=== PATIENT | male | born 1935 | race Caucasian/White ===

== ENCOUNTER 2018-09-04 05:28 | Inpatient (IN) | payer MEDICARE ==
[2018-09-03 12:01] VITALS: BMI 26.4
--- NOTE | 2018-09-03 16:21 | HP ---
HISTORY OF PRESENT ILLNESS: Mr. Otto returns with a new MRI and x-ray imaging. He continues to suffer with severe neurologic claudication, cannot stand for more than a few minutes. Sitting or leaning forward makes his legs feel better. He is interested in surgery. Therapy and injections have not made a prudent difference. REVIEW OF SYSTEMS: A 10-point review of systems has been completed and is negative other than stated in the above HPI. PAST MEDICAL HISTORY: Back and hip pain, CHF, skin cancer, hernia, cataracts. PAST SURGICAL HISTORY: The patient denies past surgical history. FAMILY HISTORY: Father is , mother is , diagnosed with diabetes, hypertension and heart disease. Siblings are alive, diagnosed with diabetes. SOCIAL HISTORY: The patient is a former smoker, quit in 1958. with 3 children. MEDICATIONS: 1. Metformin. 2. Carvedilol. 3. Eliquis. 4. Aspirin 81 mg. 5. Alpha lipoic acid. ALLERGIES: NO KNOWN DRUG ALLERGIES. PHYSICAL EXAMINATION: CONSTITUTION: The patient is alert and oriented, afebrile, normotensive, nontoxic. HEENT. Head is normocephalic and atraumatic. Pupils are equal, round, reactive to light. Extraocular movements are intact. Hearing is intact. Moist mucous membranes. CARDIOVASCULAR: Regular rate and rhythm. RESPIRATIONS: Normal work of breathing on room air. NEUROLOGIC: Gait and station, leans forward when walking, walks slow. Motor exam, there is normal strength in iliopsoas, quadriceps, hamstrings, anterior tib, EHL, gastroc, and toe flexors. Sensory exam, stocking-distribution sensory loss. IMAGING: MRI shows stenosis at L2-L3, L3-L4 and L4-L5. Flexion-extension x-rays, mild motion at L3-L4, perhaps 1 mm. ASSESSMENT AND PLAN: Spinal stenosis with lumbar neurogenic claudication. Dr. Davis has offered surgery. INFORMED CONSENT: We have discussed the indications, risks, benefits, alternatives, and expected results from surgery. The risks discussed include, but are not limited to, bleeding, infection, CSF leak, nerve damage, weakness, incontinence, cauda equina injury, arachnoiditis, paralysis, ventilator dependence, wheelchair dependence, loss of vision, hardware misplacement, cardiopulmonary complications of anesthesia, or . Long-term complications discussed included, but were not limited to degradation of the surrounding disks, the need for further surgery. The patient states he understands the risks and is willing to proceed. Job ID: [id number]
[2018-09-04] MEDS ORDERED: Sodium Chloride 0.9% 20 ML ONE (06:17)
[2018-09-04] MEDS ORDERED: Bupivacaine HCl 0.5%/Epinephrine 1:200,000/PF 30 ml Vial ONE (06:17)
[2018-09-04] MEDS ORDERED: Thrombin 5000 UNITS/5 ML VIAL ONE (06:17)
[2018-09-04] MEDS ORDERED: Fentanyl 100 MCG/2 ML VIAL ONE ×2 (06:27→11:13)
[2018-09-04 06:31] LABS: #Basophils 0.1 thou/uL (0.0-0.2); #Eosinphils 0.1 thou/uL (0.0-0.7); #Lymphocytes 1.4 thou/uL (1.20-3.40); #Monocytes 0.5 thou/uL (0.11-0.59); #Neutrophils 3.8 thou/uL (1.40-6.50); %Basophils 1.1 % (0.0-1.0); %Eosinophils 0.9 % (0.0-10.0); %Lymphocytes 24.6 % (21.0-51.0); %Monocytes 8.6 % (0.0-10.0); %Neutrophils 64.9 % (42.0-75.0); Hemoglobin 12.8 g/dL (14.0-18.0); Mean Corpuscular HGB CONC 31.5 g/dL (32.0-36.0); Mean Corpuscular Hemoglobin 30.8 pg (27.0-31.0); Mean Corpuscular Volume 97.7 fL (78.0-98.0); Platelet Count 151 thou/uL (130-400); RBC Distribution Width 14.2 % (11.5-14.5); Red Blood Cell (RBC) Count 4.17 mill/uL (4.70-6.10); White Blood Cell (WBC) Count 5.8 thou/uL (4.8-10.8)
[2018-09-04 06:37] LABS: INR-International Normal Ratio 1.2; PTT 33.1 SEC (22.9-36.1); Prothrombin Time 15.2 SEC (12.0-14.7)
[2018-09-04] MEDS ORDERED: CEFAZOLIN 2 GM/50 ML BAG ONE (06:42)
[2018-09-04 06:49] LABS: Anion Gap 13 mmol/L (10-20); BUN (Urea Nitrogen) 32 mg/dL (8.4-25.7); Calc. Creatinine Clearance 56 mL/min (70-130); Calcium 9.1 mg/dL (7.8-10.44); Carbon Dioxide 25 mmol/L (23-31); Chloride 104 mmol/L (98-107); Estimated GFR-MDRD 59; Glucose 146 mg/dL (83-110); Potassium 4.5 mmol/L (3.5-5.1); Sodium 137 mmol/L (136-145)
[2018-09-04] MEDS ORDERED: PHENYLEPHRINE-NS 100 MCG/ML 10 ML SYRINGE ONE (08:33)
[2018-09-04] MEDS ORDERED: Acetaminophen 650 MG Suppository PR PRN (10:20)
[2018-09-04] MEDS ORDERED: Morphine 4 MG/ML VIAL SLOW IVP PRN (10:20)
[2018-09-04] MEDS ORDERED: diphenhydrAMINE 50 MG/ML VIAL IVP PRN (10:20)
[2018-09-04] MEDS ORDERED: Bisacodyl 10 MG SUPP PR PRN (10:20)
[2018-09-04] MEDS ORDERED: Promethazine 25 MG TAB PO PRN (10:20)
[2018-09-04] MEDS ORDERED: tiZANidine HCl 4 MG TAB PO PRN (10:20)
[2018-09-04] MEDS ORDERED: Promethazine HCl 25 MG/ML VIAL IM PRN (10:20)
[2018-09-04] MEDS ORDERED: Ondansetron PF 4 MG/2 ML Vial IVP PRN (10:20)
[2018-09-04] MEDS ORDERED: Acetaminophen/Codeine 30-300mg Tablet PO PRN ×2 (10:20)
[2018-09-04] MEDS ORDERED: diphenhydrAMINE 25 MG CAP PO PRN (10:20)
[2018-09-04] MEDS ORDERED: Morphine 2 MG/ML SYRINGE SLOW IVP PRN (10:20)
[2018-09-04] MEDS ORDERED: Mag-Al 1200 mg/1200 mg/30 ML UDCUP PO PRN (10:20)
[2018-09-04] MEDS ORDERED: Promethazine HCl 12.5 MG SUPP PR PRN (10:20)
[2018-09-04] MEDS ORDERED: Tamsulosin HCl 0.4 MG CAP PO PRN (10:20)
[2018-09-04] MEDS ORDERED: Milk Of Magnesia 30 ML UDCUP PO PRN (10:20)
[2018-09-04] MEDS ORDERED: CEFAZOLIN/Water 2 GM/20 ML SYRINGE SLOW IVP SCH (10:30)
[2018-09-04] MEDS ORDERED: Ondansetron HCl/PF 4 MG/2 ML Vial IVP PRN (10:31)
[2018-09-04] MEDS ORDERED: HYDROmorphone 2 MG/ML VIAL SLOW IVP PRN (10:31)
--- NOTE | 2018-09-04 10:46 | OP ---
DATE OF PROCEDURE: 09/04/2018 GOLF [employer]RSE SUPERINTENDENT: Shelly Velazquez PA-C. PREOPERATIVE INDICATION: Treat pain and prevent neurological deterioration. PREOPERATIVE DIAGNOSIS: Multilevel lumbar stenosis with severe neurogenic claudication. POSTOPERATIVE DIAGNOSIS: Multilevel lumbar stenosis with severe neurogenic claudication. PROCEDURE PERFORMED: Decompressive laminectomy, medial facetectomy, and foraminotomy at L2-L3, L3-L4, L4-L5. PREOPERATIVE MEDICATION: Ancef 2 g IV. DRAIN NUMBER: 1. DRAIN TYPE: 10-L[place] Ramin. DESCRIPTION OF PROCEDURE: The patient was brought to the operating room. General endotracheal anesthesia was induced. The patient was positioned prone on the operating table. The chest and hips supported by gel-filled chest rolls. A lateral fluoro radiograph was used to plan our incision. The lumbar skin was sterilely prepped and draped. We opened with a 10 blade knife. We controlled bleeding with bipolar and monopolar cautery. We used monopolar cautery to dissect through subcutaneous tissues to the thoracodorsal fascia. We incised the fascia in the midline and we reflected the paraspinal muscles off the spinous process and lamina from L2-L5. Self-retaining retractors were placed and a lateral fluoro radiograph confirmed the levels upon which we were operating. We then used an Adson rongeur to remove the spinous processes from L2 to the top of L5. With the high-speed drill with a kay bit, we thinned the lamina from L2-L5. With a Kerrison rongeur, we fashioned a laminectomy. We widened our laminectomy defect by performing medial facetectomy. We decompressed laterally until we were in line with the pedicles on each side. We identified the traversing and exiting nerve roots and performed foraminotomies over these roots and at the completion of our decompression, the canal was widely patent and a Mariee ball probe could pass through the lateral recess and out the foramen with each of the nerves on both sides from L2-L5. We waxed the bone edges. We controlled bleeding with gentle bipolar cautery. We tunneled the drain inferiorly through a separate stab incision. We treated the wound with vancomycin powder and we infused local anesthetic in the paraspinal muscles. We closed in anatomical layers and we applied a sterile dressing. This was a clean case, no contamination. Job ID: [id number]
[2018-09-04] MEDS ORDERED: Dextrose 5% in Water 1,000 ML IV PRN (12:36)
[2018-09-04] MEDS ORDERED: Insulin Regular 300 UNITS/3 ML VIAL SC PRN ×2 (12:36)
[2018-09-04] MEDS ORDERED: Dextrose 50% Abboject 50 ML SYRINGE SLOW IVP PRN (12:36)
[2018-09-04] MEDS: CEFAZOLIN 2 GM/50 ML-DEXTROSE 2 GM in Premix Bag 1 BAG IVPB SCH ×2 (14:00→21:15)
[2018-09-04] MEDS: Sodium Chloride 0.9% 1,000 ML IV SCH ×2 (14:03→23:20)
[2018-09-04] MEDS: Acetaminophen 325 MG TAB PO PRN ×2 (15:38→21:15)
[2018-09-04] MEDS ORDERED: Labetalol HCl 100 MG/20 ML VIAL SLOW IVP PRN (15:43)
--- NOTE | 2018-09-04 16:55 | PDOC.PN ---
- Subjective Encounter Start Date: 09/04/18 Encounter Start Time: 16:53 Patient seen and examined for med mngt. No new complaints. No overnight events - Objective MAR Reviewed: Yes Vital Signs & Weight: Vital Signs (12 hours) Temp Pulse Resp BP Pulse Ox 09/04/18 11:55 97.1 F L 92 18 132/74 96 Weight Weight 179 lb Result Diagrams: 09/04/18 06:22 09/04/18 06:22 Additional Labs: Accuchecks 09/04/18 15:37 POC Glucose 171 H EKG Reviewed by me: Yes (Afib - rate controlled.) Phys Exam - Physical Examination Constitutional: NAD Respiratory: no wheezing, no rhonchi Cardiovascular: no rub, irregular Gastrointestinal: soft, non-tender, positive bowel sounds Musculoskeletal: no edema Neurological: moves all 4 limbs Dx/Plan (1) Chronic a-fib Code(s): I48.2 - CHRONIC ATRIAL FIBRILLATION Status: Chronic (2) CAD (coronary artery disease) Code(s): I25.10 - ATHSCL HEART DISEASE OF [place] CORONARY ARTERY W/O ANG PCTRS Status: Chronic (3) HTN (hypertension) Code(s): I10 - ESSENTIAL (PRIMARY) HYPERTENSION Status: Chronic (4) HLD (hyperlipidemia) Code(s): E78.5 - HYPERLIPIDEMIA, UNSPECIFIED Status: Chronic (5) CKD (chronic kidney disease) stage 3, GFR 30-59 ml/min Code(s): N18.3 - CHRONIC KIDNEY DISEASE, STAGE 3 (MODERATE) Status: Chronic - Plan plan discussed w/ family, DVT proph w/SCDs Anticoag on hold -: Resume Coreg at low dose -: Hold Losartan and Lasix for now -: Will follow. Full code. DPOA - self/family -: Thank you for this consultation. Review of Systems - Review of Systems Respiratory: negative: Cough, Dry, Shortness of Breath, Hemoptysis, SOB with Excertion, Pleuritic Pain, Sputum, Wheezing Cardiovascular: negative: chest pain, palpitations, orthopnea, paroxysmal nocturnal dyspnea, edema, light headedness, other - Medications/Allergies Allergies/Adverse Reactions: Allergies Allergy/AdvReac Type Severity Reaction Status Date / Time NSAIDS (Non-Steroidal AdvReac Intermediate CONSTRAINDICATED Verified 09/03/18 12 :01 Anti-Inflamma DUE TO BLOOD THINNER Hipfdoy-Mpm-Jep Reductase AdvReac Intermediate INTOLERANCE- Verified 09/03/18 12 :01 Inhibitor MUSCLE WEAKNESS Medications: Current Medications Acetaminophen (Tylenol) 650 mg PO Q4H PRN PRN Reason: Headache/Fever or Pain Last Admin: 09/04/18 15:38 Dose: 650 mg Acetaminophen (Tylenol) 650 mg NJ Q4H PRN PRN Reason: Headache/Fever or Pain Acetaminophen/Codeine Phosphate (Tylenol #3) 1 tab PO Q3H PRN PRN Reason: Mild Pain (1-3) Acetaminophen/Codeine Phosphate (Tylenol #3) 2 tab PO Q3H PRN PRN Reason: Moderate Pain (4-6) Al Hydroxide/Mg Hydroxide (Maalox) 30 ml PO Q4H PRN PRN Reason: Indigestion Bisacodyl (Dulcolax) 10 mg NJ Q12H PRN PRN Reason: Constipation Carvedilol (Coreg) 6.25 mg PO BID-[facility] Dextrose/Water (Dextrose 50%) 25 gm SLOW IVP PRN PRN PRN Reason: Hypoglycemia Diphenhydramine HCl (Benadryl) 25 mg IVP Q6H PRN PRN Reason: Itching Diphenhydramine HCl (Benadryl) 25 mg PO Q6H PRN PRN Reason: Itching Glucagon (Glucagon) 1 mg IM PRN PRN PRN Reason: Hypoglycemia Sodium Chloride (Normal Saline 0.9%) 1,000 mls @ 75 mls/hr IV .[id number] [facility] Last Admin: 09/04/18 14:03 Dose: Not Given Cefazolin Sodium/Dextrose 2 gm (/ Device) 50 mls @ 100 mls/hr IVPB Q8HR [facility] Last Admin: 09/04/18 14:00 Dose: 50 mls Dextrose/Water (D5w) 1,000 mls @ 0 mls/hr IV .Q0M PRN PRN Reason: Hypoglycemia Insulin Human Regular (Humulin R) 0 units SC .MILD SLIDING SCALE PRN PRN Reason: Mild Correctional Scale Insulin Human Regular (Humulin R) 0 units SC .BEDTIME SLIDING SC PRN PRN Reason: Bedtime Correctional Scale Labetalol HCl (Normodyne) 10 mg SLOW IVP Q4H PRN PRN Reason: Systolic BP > 180 Magnesium Hydroxide (Milk Of Magnesium) 30 ml PO Q12H PRN PRN Reason: Constipation Morphine Sulfate (Morphine) 2 mg SLOW IVP Q1H PRN PRN Reason: Moderate Breakthrough Pain Morphine Sulfate (Morphine) 4 mg SLOW IVP Q1H PRN PRN Reason: Severe Breakthrough Pain Ondansetron HCl (Zofran) 4 mg IVP DAILY PRN PRN Reason: Nausea/Vomiting Pantoprazole Sodium (Protonix) 40 mg PO DAILY GABBIE Promethazine HCl (Phenergan) 12.5 mg PO Q4H PRN PRN Reason: Nausea/Vomiting Promethazine HCl (Phenergan) 12.5 mg IM Q4H PRN PRN Reason: Nausea/Vomiting Promethazine HCl (Phenergan Suppository) 12.5 mg NJ Q4H PRN PRN Reason: Nausea/Vomiting Sodium Chloride (Flush - Normal Saline) 10 ml IVF PRN PRN PRN Reason: Saline Flush Tamsulosin HCl (Flomax) 0.4 mg PO 0600 PRN PRN Reason: decreased flow Tizanidine HCl (Zanaflex) 4 mg PO Q6H PRN PRN Reason: Muscle Spasm
[2018-09-04] MEDS: Carvedilol 6.25 MG TAB PO SCH (17:30)
[2018-09-05] MEDS: Acetaminophen 325 MG TAB PO PRN ×2 (01:34→05:44)
[2018-09-05] MEDS: CEFAZOLIN 2 GM/50 ML-DEXTROSE 2 GM in Premix Bag 1 BAG IVPB SCH (05:44)
[2018-09-05] MEDS: Carvedilol 6.25 MG TAB PO SCH (08:47)
--- NOTE | 2018-09-05 10:51 | PRG ---
DATE OF SERVICE: 09/05/2018 Mr. Otto is postop day [address] Davis. He has been ambulating up, doing well. He has minimal pain and is hopeful for discharge. Unfortunately, his drain put out nearly 140 last night and has already put out 20 more this morning before I saw him after being drained. I discussed with he and his that if we are able to get to a point where his drainage is less than 10 per hour, we will discontinue the drain and get him home. He and his are agreeable to this. Job ID: [id number]
[2018-09-05 11:41] VITALS: BP 100/65; TEMP 97.5
[2018-09-05] MEDS ORDERED: Polyethylene Glycol 3350 17 GM Packet PO SCH (12:00)
[2018-09-05] MEDS ORDERED: Senokot S 8.6-50 MG TAB PO SCH ×2 (12:00→21:00)
--- NOTE | 2018-09-05 14:14 | PDOC.PN ---
- Subjective Encounter Start Date: 09/05/18 Encounter Start Time: 10:45 Patient seen and examined for med mngt. No new complaints. No overnight events - Objective MAR Reviewed: Yes Vital Signs & Weight: Vital Signs (12 hours) Temp Pulse Resp BP Pulse Ox 09/05/18 11:00 97.5 F L 87 16 100/65 95 09/05/18 07:30 97.9 F 94 18 108/71 97 09/05/18 04:25 97.6 F 82 18 114/78 95 Weight Weight 179 lb I&O: 09/04/18 09/05/18 09/06/18 06:59 06:59 06:59 Intake Total 400 Output Total 240 65 Balance 160 -65 Result Diagrams: 09/04/18 06:22 09/04/18 06:22 Additional Labs: Accuchecks 09/05/18 09/05/18 09/04/18 11:01 05:20 20:18 POC Glucose 182 H 166 H 214 H 09/04/18 15:37 POC Glucose 171 H Phys Exam - Physical Examination Constitutional: NAD Respiratory: no wheezing, no rhonchi Cardiovascular: RRR, no rub Gastrointestinal: soft, non-tender, positive bowel sounds Musculoskeletal: no edema Neurological: moves all 4 limbs Dx/Plan (1) Chronic a-fib Code(s): I48.2 - CHRONIC ATRIAL FIBRILLATION Status: Chronic Comment: Anticoag on hold (2) CAD (coronary artery disease) Code(s): I25.10 - ATHSCL HEART DISEASE OF [place] CORONARY ARTERY W/O ANG PCTRS Status: Chronic (3) HTN (hypertension) Code(s): I10 - ESSENTIAL (PRIMARY) HYPERTENSION Status: Chronic (4) HLD (hyperlipidemia) Code(s): E78.5 - HYPERLIPIDEMIA, UNSPECIFIED Status: Chronic (5) CKD (chronic kidney disease) stage 3, GFR 30-59 ml/min Code(s): N18.3 - CHRONIC KIDNEY DISEASE, STAGE 3 (MODERATE) Status: Chronic (6) Constipation Code(s): K59.00 - CONSTIPATION, UNSPECIFIED Status: Acute - Plan cont current plan of care, plan discussed w/ family, incentive spirometry, DVT proph w/SCDs Cont low dose Coreg -: Losartan on hold -: Resume Metformin, Cont sliding scale -: Treat constipation Review of Systems - Review of Systems Constitutional: negative: fever, chills, sweats, weakness, malaise, other Respiratory: negative: Cough, Dry, Shortness of Breath, Hemoptysis, SOB with Excertion, Pleuritic Pain, Sputum, Wheezing Cardiovascular: negative: chest pain, palpitations, orthopnea, paroxysmal nocturnal dyspnea, edema, light headedness, other Gastrointestinal: Constipation. negative: Nausea, Vomiting, Abdominal Pain, Diarrhea, Melena, Hematochezia, Other - Medications/Allergies Allergies/Adverse Reactions: Allergies Allergy/AdvReac Type Severity Reaction Status Date / Time NSAIDS (Non-Steroidal AdvReac Intermediate CONSTRAINDICATED Verified 09/03/18 12 :01 Anti-Inflamma DUE TO BLOOD THINNER Qfymkck-Wbe-Hge Reductase AdvReac Intermediate INTOLERANCE- Verified 09/03/18 12 :01 Inhibitor MUSCLE WEAKNESS Medications: Current Medications Acetaminophen (Tylenol) 650 mg PO Q4H PRN PRN Reason: Headache/Fever or Pain Last Admin: 09/05/18 05:44 Dose: 650 mg Acetaminophen (Tylenol) 650 mg [place] Q4H PRN PRN Reason: Headache/Fever or Pain Acetaminophen/Codeine Phosphate (Tylenol #3) 1 tab PO Q3H PRN PRN Reason: Mild Pain (1-3) Acetaminophen/Codeine Phosphate (Tylenol #3) 2 tab PO Q3H PRN PRN Reason: Moderate Pain (4-6) Al Hydroxide/Mg Hydroxide (Maalox) 30 ml PO Q4H PRN PRN Reason: Indigestion Bisacodyl (Dulcolax) 10 mg VA Q12H PRN PRN Reason: Constipation Carvedilol (Coreg) 6.25 mg PO BID-[facility] Dextrose/Water (Dextrose 50%) 25 gm SLOW IVP PRN PRN PRN Reason: Hypoglycemia Diphenhydramine HCl (Benadryl) 25 mg IVP Q6H PRN PRN Reason: Itching Diphenhydramine HCl (Benadryl) 25 mg PO Q6H PRN PRN Reason: Itching Last Admin: 09/05/18 01:44 Dose: 25 mg Glucagon (Glucagon) 1 mg IM PRN PRN PRN Reason: Hypoglycemia Sodium Chloride (Normal Saline 0.9%) 1,000 mls @ 75 mls/hr IV .[id number] [facility] Last Admin: 09/04/18 23:20 Dose: Not Given Cefazolin Sodium/Dextrose 2 gm (/ Device) 50 mls @ 100 mls/hr IVPB Q8HR [facility] Last Admin: 09/05/18 05:44 Dose: 50 mls Dextrose/Water (D5w) 1,000 mls @ 0 mls/hr IV .Q0M PRN PRN Reason: Hypoglycemia Insulin Human Regular (Humulin R) 0 units SC .MILD SLIDING SCALE PRN PRN Reason: Mild Correctional Scale Insulin Human Regular (Humulin R) 0 units SC .BEDTIME SLIDING SC PRN PRN Reason: Bedtime Correctional Scale Labetalol HCl (Normodyne) 10 mg SLOW IVP Q4H PRN PRN Reason: Systolic BP > 180 Magnesium Hydroxide (Milk Of Magnesium) 30 ml PO Q12H PRN PRN Reason: Constipation Metformin HCl (Glucophage) 1,000 mg PO BID-[facility] Morphine Sulfate (Morphine) 2 mg SLOW IVP Q1H PRN PRN Reason: Moderate Breakthrough Pain Morphine Sulfate (Morphine) 4 mg SLOW IVP Q1H PRN PRN Reason: Severe Breakthrough Pain Ondansetron HCl (Zofran) 4 mg IVP DAILY PRN PRN Reason: Nausea/Vomiting Pantoprazole Sodium (Protonix) 40 mg PO DAILY [facility] Last Admin: 09/05/18 08:47 Dose: 40 mg Polyethylene Glycol (Miralax) 17 gm PO DAILY [facility] Promethazine HCl (Phenergan) 12.5 mg PO Q4H PRN PRN Reason: Nausea/Vomiting Promethazine HCl (Phenergan) 12.5 mg IM Q4H PRN PRN Reason: Nausea/Vomiting Promethazine HCl (Phenergan Suppository) 12.5 mg VA Q4H PRN PRN Reason: Nausea/Vomiting Senna/Docusate Sodium (Senokot S) 2 tab PO BID [facility] Sodium Chloride (Flush - Normal Saline) 10 ml IVF PRN PRN PRN Reason: Saline Flush Tamsulosin HCl (Flomax) 0.4 mg PO 0600 PRN PRN Reason: decreased flow Last Admin: 09/05/18 05:44 Dose: 0.4 mg Tizanidine HCl (Zanaflex) 4 mg PO Q6H PRN PRN Reason: Muscle Spasm
[2018-09-05] MEDS ORDERED: Carvedilol 6.25 MG TAB PO SCH (17:00)
[2018-09-05] MEDS ORDERED: metFORMIN 500 MG TAB PO SCH (17:00)
[2018-09-06] MEDS ORDERED: Polyethylene Glycol 3350 17 GM Packet PO SCH (09:00)
== END 2018-09-05 14:49 | disposition home or self-care (01) | DRG 519 ==
LOC: SDC 05:28 → SURG B 10:19
PROVIDERS: ADMIT Neurological Surgery; ATTEND Neurological Surgery
PROC: 00NY0ZZ Release Lumbar Spinal Cord, Open Approach (ICD-10-PCS; principal; 2018-09-04)
PROC: 01NB0ZZ Release Lumbar Nerve, Open Approach (ICD-10-PCS; 2018-09-04)
DX: M48.062 Spinal stenosis, lumbar region with neurogenic claudication (principal); I13.0 Hypertensive heart and chronic kidney disease with heart failure and stage 1 through stage 4 chronic kidney disease, or unspecified chronic kidney disease; I48.2 Chronic atrial fibrillation; I25.10 Atherosclerotic heart disease of native coronary artery without angina pectoris; I11.0 Hypertensive heart disease with heart failure; E78.5 Hyperlipidemia, unspecified; K59.00 Constipation, unspecified; N18.3 Chronic kidney disease, stage 3 (moderate); I50.9 Heart failure, unspecified; Z85.828 Personal history of other malignant neoplasm of skin; Z87.891 Personal history of nicotine dependence; Z79.899 Other long term (current) drug therapy; Z79.01 Long term (current) use of anticoagulants; Z79.82 Long term (current) use of aspirin
CPT/HCPCS: 36415; 36416; 76000; 80048; 85025; 85610; 85730; J0131; J0670; J1815; J3010; J3370; J3490; Q0163